=== PATIENT | female | born 1955 | race Caucasian/White ===

== ENCOUNTER 2017-09-01 21:58 | Inpatient (IN) | payer MEDICAID ==
[~2017-09-01] VITALS: Ht 167.6 cm; Wt 81.2 kg
[2017-09-01 22:05] VITALS: BP 130/71
[2017-09-01] MEDS ORDERED: NACL 0.9% 1,000 ML IV ONE (22:15)
[2017-09-01 22:45] LABS: APPEARANCE,URINE CLEAR (CLEAR); BILIRUBIN,URINE NEGATIVE (NEGATIVE); BLOOD, URINE NEGATIVE (NEGATIVE); COLOR,URINE YELLOW (YELLOW); LEUKOCYTE ESTERASE ,URINE NEGATIVE (NEGATIVE); NITRITE, URINE NEGATIVE (NEGATIVE); UGLUCOSE NEGATIVE (NEGATIVE)
[2017-09-01] MEDS ORDERED: PIPERACILLIN/TAZOBACTAM 3.375 GM in DEXTROSE 5% 50 ML IV ONE (22:45)
[2017-09-01] MEDS ORDERED: CLINDAMYCIN 900 MG in DEXTROSE 5% 100 ML IV ONE (22:45)
[2017-09-01 22:46] LABS: BASOPHILS % (AUTO) 0.4 % (0.0-2.0); EOSINOPHILS # (AUTO) 0.1 K/uL (0-0.4); EOSINOPHILS % (AUTO) 1.2 % (0.0-4.0); HEMATOCRIT 22.3 % (36-48); HEMOGLOBIN 7.5 g/dL (12.0-16.0); LYMPHOCYTES # (AUTO) 1.7 K/uL (2.5-16.5); LYMPHOCYTES % (AUTO) 14.3 % (20.5-51.1); MEAN CORPUSCULAR HEMOGLOBIN 31 pg (27-31); MEAN CORPUSCULAR HGB CONC 34 g/dL (33-37); MEAN CORPUSCULAR VOLUME 91.5 fL (80-94); MONOCYTES # (AUTO) 0.7 K/uL (0.8-1.0); MONOCYTES % (AUTO) 5.8 % (1.7-9.3); NEUTROPHILS # (AUTO) 9.6 K/uL (1.8-7.7); NEUTROPHILS % (AUTO) 78.3 % (42.2-75.2); PLATELET COUNT (AUTO) 312 K/uL (140-450); RED BLOOD CELL COUNT(AUTO) 2.44 MIL/uL (4.20-5.40); WHITE BLOOD COUNT (AUTO) 12.2 K/uL (4.8-10.8)
[2017-09-01 22:52] LABS: ANION GAP 14.4 (8-16); CARBON DIOXIDE 25.2 mmol/L (21-32); CREATININE 0.9 mg/dL (0.6-1.3); POTASSIUM 3.6 mmol/L (3.5-5.1)
[2017-09-01] MEDS ORDERED: CLINDAMYCIN 900 MG/6 ML VIAL IV ONE (22:55)
[2017-09-01] MEDS ORDERED: PIPERACILLIN/TAZOBACTAM 3.375 GM VIAL IV ONE (22:55)
[2017-09-01 22:59] LABS: ALBUMIN 2.7 g/dL (3.4-5.0); TOTAL BILIRUBIN 0.4 mg/dL (0.0-1.0)
[2017-09-01 23:11] LABS: PROTHROMBIN TIME 11.7 secs (10.8-13.4)
[2017-09-01] MEDS ORDERED: NACL 0.9% 2,000 ML IV ONE (23:15)
[2017-09-01] MEDS ORDERED: MORPHINE SULFATE 2 MG/ML SYR IVP ONE (23:35)
[2017-09-01] MEDS ORDERED: ONDANSETRON 4 MG/2 ML VIAL IVP PRN (23:40)
[2017-09-01] MEDS: NACL 0.9% 1,000 ML IV SCH (23:40)
[2017-09-01] MEDS ORDERED: ACETAMINOPHEN 325 MG TAB PO PRN (23:40)
[2017-09-01 23:55] LABS: BARBITURATE, URINE NEG. ng/ml (NEG <=200); BENZODIAZEPINE, URINE NEG. ng/mL (NEG <=200); CANNABINOID, URINE NEG. ng/mL (NEG <=50); COCAINE, URINE NEG. ng/mL (NEG <=300); OPIATE, URINE NEG. ng/mL (NEG <=2000); PHENCYCLIDINE SCREEN,URINE NEG. ng/mL (NEG <=25)
[2017-09-02 00:07] LABS: CHOL/HDL RATIO 3.6 (1-4.5); FREE T4 (FREE THYROXINE) 1.41 ng/dL (0.76-1.46); MAGNESIUM 1.7 mg/dL (1.8-2.4); PHOSPHORUS 3.9 mg/dL (2.5-4.9); THYROID STIMULATING HORMONE 1.3 uIU/mL (0.34-3.74)
[2017-09-02 01:26] VITALS: BP 109/58
[2017-09-02] MEDS ORDERED: DEXTROSE 50% 50 ML SYR IVP PRN (01:30)
[2017-09-02] MEDS ORDERED: FERRIC GLUCONATE 125 MG in NACL 0.9% 100 ML IV SCH ×2 (03:00→08:00)
[2017-09-02 04:00] VITALS: BP 117/60
[2017-09-02 04:04] LABS: MEAN CORPUSCULAR HEMOGLOBIN 31 pg (27-31); MEAN CORPUSCULAR HGB CONC 34 g/dL (33-37); MEAN CORPUSCULAR VOLUME 91.5 fL (80-94); PLATELET COUNT (AUTO) 280 K/uL (140-450); RED BLOOD CELL COUNT(AUTO) 1.94 MIL/uL (4.20-5.40); RED CELL DISTRIBUTION WIDTH 13.1 % (11.6-13.7); WHITE BLOOD COUNT (AUTO) 13.5 K/uL (4.8-10.8)
[2017-09-02 04:12] LABS: HEMATOCRIT 17.8 % (36-48)
[2017-09-02 04:14] LABS: EOSINOPHILS % (MANUAL) 1 % (0-4); LYMPHOCYTES % (MANUAL) 4 % (20-46); MONOCYTES % (MANUAL) 1 % (5-12)
[2017-09-02] MEDS: MORPHINE SULFATE 4 MG/ML SYR IVP PRN ×2 (04:24→11:34)
[2017-09-02] MEDS ORDERED: diphenhydrAMINE 50 MG/ML VIAL IVP SCH (05:00)
[2017-09-02] MEDS ORDERED: ACETAMINOPHEN 325 MG TAB PO SCH (05:00)
[2017-09-02] MEDS ORDERED: CLINDAMYCIN 600 MG/4 ML VIAL ONE (05:33)
[2017-09-02] MEDS ORDERED: PIPERACILLIN/TAZOBACTAM 3.375 GM VIAL IV ONE (05:38)
[2017-09-02] MEDS: CLINDAMYCIN 600 MG in DEXTROSE 5% 50 ML IV SCH ×3 (05:42→17:29)
[2017-09-02] MEDS ORDERED: MAGNESIUM OXIDE 400 MG TAB PO SCH (06:00)
[2017-09-02] MEDS: BLOOD GLUCOSE MONITORING 1 DEV DEV FS SCH ×4 (06:29→21:03)
[2017-09-02] MEDS: PIPER/TAZO 3.375GM/D5W PREMIX 50 ML IV SCH ×3 (06:29→20:50)
[2017-09-02] MEDS: INSULIN LISPRO SLIDING SCALE 100 UNITS/ML VIAL SUBQ PRN ×2 (06:33→21:05)
[2017-09-02 08:00] VITALS: BP 107/67
[2017-09-02] MEDS: DOCUSATE SODIUM 100 MG GELCAP PO SCH ×2 (08:47→20:50)
[2017-09-02] MEDS: LACTOBACILLUS RHAMNOSUS GG 1 EACH CAP PO SCH (08:48)
[2017-09-02] MEDS: NACL 0.9% 1,000 ML IV SCH ×2 (09:40→19:40)
[2017-09-02 12:00] VITALS: BP 116/66
[2017-09-02 12:14] LABS: BASOPHILS % (AUTO) 0.3 % (0.0-2.0); EOSINOPHILS % (AUTO) 0.2 % (0.0-4.0); HEMATOCRIT 22.5 % (36-48); HEMOGLOBIN 7.7 g/dL (12.0-16.0); LYMPHOCYTES # (AUTO) 1.5 K/uL (2.5-16.5); LYMPHOCYTES % (AUTO) 14.3 % (20.5-51.1); MEAN CORPUSCULAR HEMOGLOBIN 31 pg (27-31); MEAN CORPUSCULAR HGB CONC 34 g/dL (33-37); MEAN CORPUSCULAR VOLUME 91.1 fL (80-94); MONOCYTES # (AUTO) 0.9 K/uL (0.8-1.0); MONOCYTES % (AUTO) 8.1 % (1.7-9.3); NEUTROPHILS # (AUTO) 8.2 K/uL (1.8-7.7); NEUTROPHILS % (AUTO) 77.1 % (42.2-75.2); PLATELET COUNT (AUTO) 249 K/uL (140-450); RED BLOOD CELL COUNT(AUTO) 2.47 MIL/uL (4.20-5.40); RED CELL DISTRIBUTION WIDTH 13.4 % (11.6-13.7); WHITE BLOOD COUNT (AUTO) 10.7 K/uL (4.8-10.8)
[2017-09-02 14:24] LABS: ANION GAP 11.1 (8-16); CREATININE 0.7 mg/dL (0.6-1.3); POTASSIUM 4.1 mmol/L (3.5-5.1)
[2017-09-02 15:05] LABS: MAGNESIUM 1.7 mg/dL (1.8-2.4); PHOSPHORUS 3.8 mg/dL (2.5-4.9)
[2017-09-02 16:00] VITALS: BP 140/70
[2017-09-02] MEDS ORDERED: ALGINATE ROPE MC PRN (16:55)
[2017-09-02] MEDS ORDERED: MAG SULF 2000 MG/WATER PREMIX 50 ML IV SCH (16:56)
[2017-09-02 20:00] VITALS: BP 116/69
[2017-09-03] VITALS: BP 128/76
[2017-09-03] MEDS: CLINDAMYCIN 600 MG in DEXTROSE 5% 50 ML IV SCH ×4 (00:03→18:37)
[2017-09-03] MEDS: MORPHINE SULFATE 4 MG/ML SYR IVP PRN (00:24)
[2017-09-03 04:00] VITALS: BP 125/80
[2017-09-03] MEDS: PIPER/TAZO 3.375GM/D5W PREMIX 50 ML IV SCH ×3 (05:05→20:32)
[2017-09-03] MEDS: NACL 0.9% 1,000 ML IV SCH ×2 (05:06→19:41)
[2017-09-03] MEDS: HYDROcodone/APAP 7.5/325 MG 1 TAB PO PRN ×2 (05:10→16:30)
[2017-09-03] MEDS: INSULIN LISPRO SLIDING SCALE 100 UNITS/ML VIAL SUBQ PRN ×2 (06:28→20:34)
[2017-09-03] MEDS: BLOOD GLUCOSE MONITORING 1 DEV DEV FS SCH ×4 (06:37→20:34)
[2017-09-03 06:40] LABS: BASOPHILS % (AUTO) 0.2 % (0.0-2.0); EOSINOPHILS # (AUTO) 0.2 K/uL (0-0.4); EOSINOPHILS % (AUTO) 1.5 % (0.0-4.0); HEMATOCRIT 21.7 % (36-48); HEMOGLOBIN 7.3 g/dL (12.0-16.0); LYMPHOCYTES # (AUTO) 1.5 K/uL (2.5-16.5); LYMPHOCYTES % (AUTO) 12.7 % (20.5-51.1); MEAN CORPUSCULAR HEMOGLOBIN 31 pg (27-31); MEAN CORPUSCULAR HGB CONC 34 g/dL (33-37); MEAN CORPUSCULAR VOLUME 90.4 fL (80-94); MONOCYTES # (AUTO) 0.9 K/uL (0.8-1.0); MONOCYTES % (AUTO) 7.4 % (1.7-9.3); NEUTROPHILS # (AUTO) 9.3 K/uL (1.8-7.7); NEUTROPHILS % (AUTO) 78.2 % (42.2-75.2); PLATELET COUNT (AUTO) 284 K/uL (140-450); RED CELL DISTRIBUTION WIDTH 13.6 % (11.6-13.7)
[2017-09-03 07:27] LABS: MAGNESIUM 1.9 mg/dL (1.8-2.4)
[2017-09-03 07:31] LABS: ANION GAP 8.4 (8-16); CARBON DIOXIDE 27.4 mmol/L (21-32); CREATININE 0.7 mg/dL (0.6-1.3); POTASSIUM 3.8 mmol/L (3.5-5.1)
[2017-09-03 08:00] VITALS: BP 135/82
[2017-09-03] MEDS: DOCUSATE SODIUM 100 MG GELCAP PO SCH ×2 (09:14→20:32)
[2017-09-03] MEDS: LACTOBACILLUS RHAMNOSUS GG 1 EACH CAP PO SCH (09:14)
[2017-09-03 12:00] VITALS: BP 140/79
[2017-09-03 15:20] LABS: FERRITIN 150 ng/mL (15-150); FOLIC ACID > 20.00 ng/mL (>3.0)
[2017-09-03 15:37] LABS: TRANSFERRIN 157 mg/dL (200-370)
[2017-09-03 16:00] VITALS: BP 137/77
[2017-09-03 19:57] VITALS: BP 113/74
[2017-09-04] VITALS: BP 139/76
[2017-09-04] MEDS: NACL 0.9% 1,000 ML IV SCH ×2 (00:27→10:28)
[2017-09-04] MEDS: CLINDAMYCIN 600 MG in DEXTROSE 5% 50 ML IV SCH ×4 (00:27→17:34)
[2017-09-04 04:00] VITALS: BP 134/77
[2017-09-04] MEDS: PIPER/TAZO 3.375GM/D5W PREMIX 50 ML IV SCH ×2 (04:25→13:26)
[2017-09-04] MEDS: HYDROcodone/APAP 7.5/325 MG 1 TAB PO PRN ×2 (06:15→13:51)
[2017-09-04] MEDS: BLOOD GLUCOSE MONITORING 1 DEV DEV FS SCH ×3 (06:32→16:49)
[2017-09-04] MEDS: INSULIN LISPRO SLIDING SCALE 100 UNITS/ML VIAL SUBQ PRN ×2 (06:39→12:27)
[2017-09-04 07:17] LABS: BASOPHILS % (AUTO) 0.3 % (0.0-2.0); EOSINOPHILS # (AUTO) 0.3 K/uL (0-0.4); EOSINOPHILS % (AUTO) 1.8 % (0.0-4.0); LYMPHOCYTES # (AUTO) 2.6 K/uL (2.5-16.5); LYMPHOCYTES % (AUTO) 16.2 % (20.5-51.1); MEAN CORPUSCULAR HEMOGLOBIN 30 pg (27-31); MEAN CORPUSCULAR HGB CONC 33 g/dL (33-37); MEAN CORPUSCULAR VOLUME 91.6 fL (80-94); MONOCYTES # (AUTO) 1.1 K/uL (0.8-1.0); MONOCYTES % (AUTO) 7.1 % (1.7-9.3); NEUTROPHILS # (AUTO) 11.8 K/uL (1.8-7.7); NEUTROPHILS % (AUTO) 74.6 % (42.2-75.2); PLATELET COUNT (AUTO) 350 K/uL (140-450); RED BLOOD CELL COUNT(AUTO) 2.62 MIL/uL (4.20-5.40); RED CELL DISTRIBUTION WIDTH 13.5 % (11.6-13.7); WHITE BLOOD COUNT (AUTO) 15.8 K/uL (4.8-10.8)
[2017-09-04 07:31] LABS: ANION GAP 11.4 (8-16); CARBON DIOXIDE 26.3 mmol/L (21-32); CREATININE 0.7 mg/dL (0.6-1.3); POTASSIUM 3.7 mmol/L (3.5-5.1)
[2017-09-04 07:33] LABS: MAGNESIUM 1.9 mg/dL (1.8-2.4); PHOSPHORUS 2.9 mg/dL (2.5-4.9)
[2017-09-04 08:00] VITALS: BP 123/76
[2017-09-04] MEDS: DOCUSATE SODIUM 100 MG GELCAP PO SCH (08:51)
[2017-09-04] MEDS: LACTOBACILLUS RHAMNOSUS GG 1 EACH CAP PO SCH (08:51)
[2017-09-04] MEDS ORDERED: ALGINATE ROPE MC SCH (09:00)
[2017-09-04 12:00] VITALS: BP 102/57
[2017-09-04] MEDS ORDERED: POLYVINYL ALCOHOL 1.4% OP 15 ML SOL OP PRN ×2 (14:45→14:55)
[2017-09-04] MEDS ORDERED: ARTIFICIAL TEARS OPHTH OINT 3.5 GM TUBE OP PRN (14:50)
[2017-09-04 16:00] VITALS: BP 129/74
[2017-09-04] MEDS ORDERED: HEPA500056 SUBQ (16:59)
[2017-09-04] MEDS ORDERED: DOCU-299 PO (16:59)
[2017-09-04] MEDS ORDERED: LACT10CA PO (16:59)
[2017-09-04] MEDS ORDERED: ALGINATE ROPE MC (16:59)
[2017-09-04] MEDS ORDERED: HUMSLIDE SUBQ (16:59)
[2017-09-04] MEDS ORDERED: ONDA2SOL45 IVP (16:59)
== END 2017-09-04 18:10 | disposition short-term general hospital (02) | DRG 720 ==
LOC: MED 21:58 → MTU 23:32
PROVIDERS: ADMIT Family Medicine Sports Medicine; ATTEND Family Medicine Sports Medicine
PROC: 30233N1 Transfusion of Nonautologous Red Blood Cells into Peripheral Vein, Percutaneous Approach (ICD-10-PCS; principal; 2017-09-02)
DX: A41.9 Sepsis, unspecified organism (principal); E43 Unspecified severe protein-calorie malnutrition; C50.911 Malignant neoplasm of unspecified site of right female breast; E11.65 Type 2 diabetes mellitus with hyperglycemia; D62 Acute posthemorrhagic anemia; E83.42 Hypomagnesemia; R65.20 Severe sepsis without septic shock; R59.0 Localized enlarged lymph nodes; R74.0 Nonspecific elevation of levels of transaminase and lactic acid dehydrogenase [LDH]; Z68.28 Body mass index [BMI] 28.0-28.9, adult; Z80.0 Family history of malignant neoplasm of digestive organs; Z98.891 History of uterine scar from previous surgery; Z86.32 Personal history of gestational diabetes
CPT/HCPCS: 36415; 71045; 71260; 80048; 80053; 80305; 81003; 82150; 82607; 82728; 82746; 82948; 83036; 83540; 83605; 83690; 83735; 83880; 84100; 84439; 84443; 85025; 85045; 85610; 85730; 86886; 86900; 86901; 86920; 87040; 87070; 87075; 87081; 87186; 87205; 93005; 96361; 96365; 96367; 96375; 99291; A4649; C1758; J1200; J1644; J1815; J2270; J2543; J2916; J3475; J3490; J7030; J7060; P9016; Q9967